=== PATIENT | male | born 1950 | race Caucasian/White ===

== ENCOUNTER 2018-09-05 17:30 | Inpatient (IN) | payer MEDICARE, BC ==
--- NOTE | 2018-09-05 18:54 | ERPHSYRPT ---
- History of Present Illness Time Seen by Provider: 09/05/18 18:50 Source: patient, family Exam Limitations: no limitations Patient Subjective Stated Complaint: pt states he lost balnace and fell in shower last night, pt co pain to right foot, right knee, right ribs, and right shoulder. Triage Nursing Assessment: pt susana, walked in with a cane and brace to back for comfort, he has no swelling or bruising noted, pt is tender to the right side. Physician History: pt is not sure why he fell in shower, no LOC but on plavix , very tender right abd ; some foggyness of recall; mo focal neuro tender right clavical and righth knee and right foot , neurovasc intact. Occurred: yesterday Reason for Fall: lightheaded, lost balance, fell from standing pos Injuries/Pain Location: head, chest, abdomen, pelvis, lower Loss of Consciousness: no loss of consciousness Severity of Pain-Max: moderate Severity of Pain-Current: moderate Modifying Factors: Improves With: movement Associated Symptoms (Fall): abdominal pain, dizziness, extremity injury, lightheadedness Allergies/Adverse Reactions: No Known Drug Allergies Allergy (Unverified 09/05/18 17:52) Hx Tetanus, Diphtheria Vaccination/Date Given: Yes Hx Influenza Vaccination/Date Given: Yes Hx Pneumococcal Vaccination/Date Given: Yes Immunizations Up to Date: Yes - Review of Systems Constitutional: No Fever, No Chills Eyes: No Symptoms Ears, Nose, & Throat: No Symptoms Respiratory: No Cough, No Dyspnea Cardiac: No Edema, No Syncope Abdominal/Gastrointestinal: Abdominal Pain, No Nausea, No Vomiting, No Diarrhea Musculoskeletal: Fall, Joint Pain, No Back Pain, No Neck Pain Skin: No Rash Neurological: No Dizziness, No Focal Weakness, No Sensory Changes Psychological: No Symptoms Endocrine: No Symptoms All Other Systems: Reviewed and Negative - Past Medical History Pertinent Past Medical History: Yes Cardiac History: Coronary Artery Disease, Hypertension Endocrine Medical History: Diabetes Type II - Past Surgical History Past Surgical History: Yes Cardiac: Cardiac Catheterization, Cardiac Stent - Social History Smoking Status: Never smoker Exposure to second hand smoke: No Drug Use: none Patient Lives Alone: No - Nursing Vital Signs Nursing Vital Signs: Initial Vital Signs Temperature 98.1 F 09/05/18 17:42 Pulse Rate 75 09/05/18 17:42 Respiratory Rate 18 09/05/18 17:42 Blood Pressure 135/76 09/05/18 17:42 O2 Sat by Pulse Oximetry 97 09/05/18 17:42 Pain Scale Pain Intensity 6 - [place] Coma Score Best Eye Response (Matias): (4) open spontaneously Best Verbal Response (Matias): (5) oriented Best Motor Response ([place]): (6) obeys commands [place] Total: 15 - Physical Exam General Appearance: mild distress, alert Head Injury: no evidence of injury Eye Exam: PERRL/EOMI ENT Exam: airway nml Neck Exam: trachea midline, normal inspection, No tenderness Respiratory/Chest Exam: normal breath sounds, No chest tenderness, No respiratory distress Cardiovascular Exam: normal heart sounds, regular rate/rhythm Gastrointestinal Exam: soft, tenderness, No distention, No guarding, No ecchymosis Rectal Exam: deferred Back Exam: normal inspection, No vertebral tenderness Extremity Exam: normal inspection, normal range of motion, pelvis stable, contusions, limited range of motion, evidence of injury, pain with movement, tenderness, No deformities Peripheral Pulses: carotid (R): 2+, carotid (L): 2+, femoral (R): 2+, femoral (L ): 2+, dorsalis-pedis (R): 2+ Neurologic Exam: alert, oriented x 3, cooperative, sensation nml, No motor deficits Skin Exam: normal color, warm, dry SpO2: 97 - Course Nursing assessment & vital signs reviewed: Yes EKG Interpreted by Me: Sinus Rhythm, Left Moreland Deviation, LAFB, 1st degree AV Block, Right Bundle Branch Block, Non-specific ST Changes - Radiology Exams Right Foot X-ray Interpretation: Reviewed by me, Non-displaced Fracture (possible nondisp fx - calcium is seen ist met adn great toe I{P) Right Knee X-ray Interpretation: Reviewed by me, Other (no major fx seen - jt calcium present) Right Clavicle X-ray Interpretation: Reviewed by me, Other (grade 1 sep ac jt) Chest X-ray Interpretation: Reviewed by me, No Infiltrates, Other (no obvious fx seen) - CT Exams Abdomen/Pelvis CT Interpretation: Tele-radiologist Report, No Fracture, Other (gallstones without evid for cholecystitis;RI ) Head CT Interpretation: Tele-radiologist Report, Old Stroke, Other Ordered Tests: Active Orders 24 hr Category Date Time Status EKG-ER Only STAT Care 09/05/18 18:54 Active IV Insertion STAT Care 09/05/18 18:54 Active Sling Application STAT Care 09/05/18 22:06 Active Splint STAT Care 09/05/18 22:06 Active ABDOMEN AND PELVIS W/0 CONTRAS [CT] Stat Exams 09/05/18 18:55 Taken CHEST 2 VIEWS (PA AND LAT) Stat Exams 09/05/18 18:55 Completed CLAVICLE Stat Exams 09/05/18 18:58 Completed FOOT (MINIMUM 3 VIEWS) Stat Exams 09/05/18 18:59 Completed HEAD WITHOUT CONTRAST [CT] Stat Exams 09/05/18 18:57 Taken KNEE (3 VIEWS) Stat Exams 09/05/18 18:58 Completed AMYLASE Stat Lab 09/05/18 19:32 Completed CBC W DIFF Stat Lab 09/05/18 19:32 Completed CMP Stat Lab 09/05/18 19:32 Completed CULTURE,URINE Stat Lab 09/05/18 21:33 Received LIPASE Stat Lab 09/05/18 19:32 Completed Lactic Acid Stat Lab 09/05/18 20:00 Completed NT PRO BNP Stat Lab 09/05/18 19:32 Completed TROPONIN Q3H Lab 09/05/18 19:32 Completed TROPONIN Q3H Lab 09/05/18 22:18 Completed TROPONIN Q3H Lab 09/06/18 01:00 Ordered TROPONIN Q3H Lab 09/06/18 04:00 Ordered TROPONIN Q3H Lab 09/06/18 07:00 Ordered UA W/RFX UR CULTURE Stat Lab 09/05/18 21:33 Completed Medication Summary Generic Name Dose Route Start Last Admin Trade Name Freq PRN Reason Stop Dose Admin Sodium Chloride 1,000 mls @ 100 mls/hr 09/05/18 19:00 09/05/18 19:32 Sodium Chloride 0.9% 1000 Ml IV 10/05/18 18:59 100 mls/hr .Q10H KATT Administration Discontinued Medications Generic Name Dose Route Start Last Admin Trade Name Freq PRN Reason Stop Dose Admin Diphtheria/Tetanus/Acell Pertussis 0.5 ml 09/05/18 20:06 09/05/18 20:44 Adacel Vial IM 09/05/18 20:07 Not Given .ONCE ONE Lab/Rad Data: Laboratory Result Diagrams 09/05/18 19:32 09/05/18 19:32 Laboratory Results 09/05/18 09/05/18 09/05/18 Range/Units 22:18 21:33 20:00 WBC (4.0-10.5) K/mm3 RBC (4.1-5.4) M/mm3 Hgb (12.0-16.0) gm/dl Hct (35-47) % MCV (78-100) fl MCH (26-32) pg MCHC (32-36) g/dl RDW (11.5-14.0) % Plt Count (150-450) K/mm3 MPV (6-9.5) fl Gran % (36.0-66.0) % Eos # (Auto) (0-0.5) Absolute Lymphs (auto) (1.0-4.6) Absolute Monos (auto) (0.0-1.3) Lymphocytes % (24.0-44.0) % Monocytes % (0.0-12.0) % Eosinophils % (0.00-5.0) % Basophils % (0.0-0.4) % Absolute Granulocytes (1.4-6.9) Basophils # (0-0.4) Sodium (137-145) mmol/L Potassium (3.5-5.1) mmol/L Chloride (98-107) mmol/L Carbon Dioxide (22-30) mmol/L Anion Gap (5-15) MEQ/L BUN (7-17) mg/dL Creatinine (0.52-1.04) mg/dL Estimated GFR ML/MIN Glucose (74-106) mg/dL Lactic Acid 1.6 (0.4-2.0) Calcium (8.4-10.2) mg/dL Total Bilirubin (0.2-1.3) mg/dL AST (14-36) U/L ALT (0-35) U/L Alkaline Phosphatase (38-126) U/L Troponin I < 0.012 (0.000-0.034) ng/mL NT-Pro-B Natriuret Pep (0-900) pg/mL Serum Total Protein (6.3-8.2) g/dL Albumin (3.5-5.0) g/dL Amylase (30-110) U/L Lipase (23-300) U/L Urine Color YELLOW (YELLOW) Urine Appearance CLEAR (CLEAR) Urine pH 6.0 (5-6) Ur Specific Thompson 1.025 (1.005-1.025) Urine Protein 30 (Negative) Urine Ketones NEGATIVE (NEGATIVE) Urine Blood SMALL (0-5) Parminder/ul Urine Nitrite NEGATIVE (NEGATIVE) Urine Bilirubin NEGATIVE (NEGATIVE) Urine Urobilinogen NEGATIVE (0-1) mg/dL Ur Leukocyte Esterase NEGATIVE (NEGATIVE) Urine WBC (Auto) 0-2 (0-5) /HPF Urine RBC (Auto) NONE (0-2) /HPF U Epithel Cells (Auto) NONE (FEW) /HPF Urine Bacteria (Auto) NONE SEEN (NEGATIVE) /HPF Urine Culture Reflexed YES (NO) Urine Glucose >=500 (NEGATIVE) mg/dL 09/05/18 09/05/18 09/05/18 Range/Units 19:32 19:32 19:32 WBC 8.6 (4.0-10.5) K/mm3 RBC 3.89 L (4.1-5.4) M/mm3 Hgb 12.2 (12.0-16.0) gm/dl Hct 36.3 (35-47) % MCV 93.3 (78-100) fl MCH 31.3 (26-32) pg MCHC 33.6 (32-36) g/dl RDW 12.5 (11.5-14.0) % Plt Count 199 (150-450) K/mm3 MPV 10.5 H (6-9.5) fl Gran % 64.6 (36.0-66.0) % Eos # (Auto) 0.10 (0-0.5) Absolute Lymphs (auto) 1.94 (1.0-4.6) Absolute Monos (auto) 0.99 (0.0-1.3) Lymphocytes % 22.5 L (24.0-44.0) % Monocytes % 11.5 (0.0-12.0) % Eosinophils % 1.2 (0.00-5.0) % Basophils % 0.2 (0.0-0.4) % Absolute Granulocytes 5.56 (1.4-6.9) Basophils # 0.02 (0-0.4) Sodium 136 L (137-145) mmol/L Potassium 4.2 (3.5-5.1) mmol/L Chloride 101 (98-107) mmol/L Carbon Dioxide 25 (22-30) mmol/L Anion Gap 13.6 (5-15) MEQ/L BUN 28 H (7-17) mg/dL Creatinine 1.00 (0.52-1.04) mg/dL Estimated GFR 59.0 ML/MIN Glucose 298 H (74-106) mg/dL Lactic Acid (0.4-2.0) Calcium 9.3 (8.4-10.2) mg/dL Total Bilirubin 1.00 (0.2-1.3) mg/dL AST 32 (14-36) U/L ALT 22 (0-35) U/L Alkaline Phosphatase 76 (38-126) U/L Troponin I < 0.012 (0.000-0.034) ng/mL NT-Pro-B Natriuret Pep 561 (0-900) pg/mL Serum Total Protein 6.4 (6.3-8.2) g/dL Albumin 3.5 (3.5-5.0) g/dL Amylase 37 (30-110) U/L Lipase 110 (23-300) U/L Urine Color (YELLOW) Urine Appearance (CLEAR) Urine pH (5-6) Ur Specific Thompson (1.005-1.025) Urine Protein (Negative) Urine Ketones (NEGATIVE) Urine Blood (0-5) Parminder/ul Urine Nitrite (NEGATIVE) Urine Bilirubin (NEGATIVE) Urine Urobilinogen (0-1) mg/dL Ur Leukocyte Esterase (NEGATIVE) Urine WBC (Auto) (0-5) /HPF Urine RBC (Auto) (0-2) /HPF U Epithel Cells (Auto) (FEW) /HPF Urine Bacteria (Auto) (NEGATIVE) /HPF Urine Culture Reflexed (NO) Urine Glucose (NEGATIVE) mg/dL - Progress Progress: improved, re-examined Progress Note: 09/05/18 20:40 pt taken in handoff from dr sood , but was stable and had not been seen by him yet , so workup was begun after this initial delay; pt stable with no new or changing symptoms noted at that time and in rounding in ER. 09/05/18 22:53 discussed with pt , family and dr nicole and all agree best fpor pt to be in on obs for potential TIA , he is already on plavix so will keep same; will monitor on tele and enzymes followup for incidental hernia and gallstones and right shoudler and foot Discussed with : Solo Will see patient in: hospital (observation) Counseled pt/family regarding: lab results, diagnosis, need for follow-up, rad results - Departure Departure Disposition: Observation Clinical Impression: grade 1 right ac separation, nondisplaced right foot fx/contusion, right rib contusion, incidental cholelithiasis, old CVA per CT, Injury of right rotator cuff Condition: Good Critical Care Time: No Referrals: AMANUEL OCHOA MD [Primary Care Provider] - Instructions: Foot Fracture (DC), Shoulder, Gallstones (DC)
[2018-09-05] MEDS: Sodium Chloride 0.9% 1000 ML 1,000 ML IV SCH (19:32)
[2018-09-05 19:35] LABS: BASOPHIL % 0.2 % (0.0-0.4); Basophil (Absolute #) 0.02 (0-0.4); Eosinophil % 1.2 % (0.00-5.0); Granulocyte Absolute (ANC) 5.56 (1.4-6.9); Granulocytes % 64.6 % (36.0-66.0); Hematocrit 36.3 % (35-47); Hemoglobin 12.2 gm/dl (12.0-16.0); Lymphocyte (Absolute #) 1.94 (1.0-4.6); Lymphocytes % 22.5 % (24.0-44.0); Mean Cell Volume 93.3 fl (78-100); Mean Corpuscular Hgb Concent. 33.6 g/dl (32-36); Mean Platelet Volume 10.5 fl (6-9.5); Monocyte (Absolute #) 0.99 (0.0-1.3); Monocytes % 11.5 % (0.0-12.0); Platelet Count 199 K/mm3 (150-450); Red Blood Count 3.89 M/mm3 (4.1-5.4); Red Cell Distribution Width 12.5 % (11.5-14.0); White Blood Count 8.6 K/mm3 (4.0-10.5)
[2018-09-05 19:45] LABS: Mean Corpuscular Hemoglobin 31.3 pg (26-32)
[2018-09-05 19:57] LABS: ALBUMIN 3.5 g/dL (3.5-5.0); ANION GAP 13.6 MEQ/L (5-15); Calcium 9.3 mg/dL (8.4-10.2); Potassium 4.2 mmol/L (3.5-5.1); Total Protein 6.4 g/dL (6.3-8.2)
[2018-09-05] MEDS ORDERED: Adacel Vial IM ONE (20:06)
--- NOTE | 2018-09-05 21:25 | XRAY ---
Indication: Pain following fall. Comparison: None 3 views of the right shoulder demonstrates mild osteopenia and moderate AC degenerative arthropathy. High riding humeral head commonly seen with rotator cuff tear. No other bony, articular, or soft tissue abnormalities.
--- NOTE | 2018-09-05 21:25 | XRAY ---
Indication: Pain following fall. Comparison: None Portable chest demonstrates normal heart and lungs. Bony thorax intact with mild osteopenia and degenerative changes.
--- NOTE | 2018-09-05 21:27 | XRAY ---
Indication: Pain following fall. Comparison: None 3 views of the right knee demonstrates mild osteopenia, medial/lateral knee joint degenerative chondrocalcinosis, medial joint space narrowing/spurring, tiny patellar spurring, fabella, and scattered vascular calcifications. No other bony, articular, or soft tissue abnormalities.
--- NOTE | 2018-09-05 21:27 | XRAY ---
Indication: Pain following fall. Comparison: None 3 nonweightbearing views of the right foot demonstrates mild osteopenia, small posterior heel spur, and scattered vascular calcifications. Great toe IP joint demonstrates overhanging spurring with soft tissue swelling concerning for gout. No other bony, articular, or soft tissue abnormalities.
[2018-09-05 21:38] LABS: Appearance CLEAR (CLEAR); Bilirubin NEGATIVE (NEGATIVE); Blood SMALL Ery/ul (0-5); Glucose >=500 mg/dL (NEGATIVE); Ketones NEGATIVE (NEGATIVE); Leukocyte Esterase NEGATIVE (NEGATIVE); Nitrite NEGATIVE (NEGATIVE); Protein,Urine Dip 30 (Negative); Specific Gravity 1.025 (1.005-1.025); Urobilinogen NEGATIVE mg/dL (0-1); WBC 0-2 /HPF (0-5)
[2018-09-05 21:40] LABS: Bacteria NONE SEEN /HPF (NEGATIVE)
[2018-09-05] MEDS ORDERED: Zofran 4 MG/2 ML VIAL IV PRN (23:25)
[2018-09-05] MEDS ORDERED: TYLENOL 325 MG PO PRN (23:25)
[2018-09-05] MEDS ORDERED: DILAUDID 2 MG INJECTION IV PRN (23:25)
[2018-09-06] MEDS ORDERED: Norco 10/325 MG Tablet PO PRN (00:22)
[2018-09-06] MEDS ORDERED: ZOCOR 20MG ONE (00:25)
[2018-09-06] MEDS: NEURONTIN 300 MG PO SCH ×3 (00:30→22:00)
[2018-09-06] MEDS: Glucotrol 5 MG PO SCH ×3 (00:30→17:09)
[2018-09-06] MEDS: Coreg 6.25 MG PO SCH ×3 (00:30→22:01)
[2018-09-06] MEDS: ZOCOR 20MG PO SCH ×2 (00:31→22:01)
[2018-09-06] MEDS: Lantus Insulin SQ SCH ×3 (00:31→22:05)
[2018-09-06] MEDS: Sodium Chloride 0.9% 1000 ML 1,000 ML IV SCH ×2 (01:25→21:59)
[2018-09-06] MEDS: NovoLIN R SQ PRN ×2 (04:16→22:06)
[2018-09-06 04:56] LABS: BASOPHIL % 0.4 % (0.0-0.4); Basophil (Absolute #) 0.03 (0-0.4); Eosinophil (Absolute #) 0.16 (0-0.5); Granulocyte Absolute (ANC) 4.55 (1.4-6.9); Granulocytes % 56.5 % (36.0-66.0); Hematocrit 32.9 % (42-50); Lymphocyte (Absolute #) 2.47 (1.0-4.6); Lymphocytes % 30.6 % (24.0-44.0); Mean Cell Volume 93.7 fl (78-100); Mean Corpuscular Hemoglobin 31.3 pg (26-32); Mean Corpuscular Hgb Concent. 33.4 g/dl (32-36); Mean Platelet Volume 10.6 fl (6-9.5); Monocyte (Absolute #) 0.85 (0.0-1.3); Monocytes % 10.5 % (0.0-12.0); Platelet Count 191 K/mm3 (150-450); Red Blood Count 3.51 M/mm3 (4.1-5.6); Red Cell Distribution Width 12.5 % (11.5-14.0); White Blood Count 8.1 K/mm3 (4.0-10.5)
[2018-09-06 05:00] LABS: ALKALINE PHOSPHATASE 63 U/L (38-126); ANION GAP 12.6 MEQ/L (5-15); BLOOD UREA NITROGEN 28 mg/dL (9-20); CHLORIDE 106 mmol/L (98-107); Calcium 8.8 mg/dL (8.4-10.2); Carbon Dioxide 24 mmol/L (22-30); Creatinine 1 1.05 mg/dL (0.66-1.25); Glucose 246 mg/dL (74-106); Potassium 3.8 mmol/L (3.5-5.1); SGOT/AST 22 U/L (17-59); SGPT/ALT 18 U/L (0-50); SODIUM 138 mmol/L (137-145); Total Protein 5.6 g/dL (6.3-8.2)
--- NOTE | 2018-09-06 07:20 | XRAY ---
Indication: Confusion after falling yesterday. Imbalance. Multiple contiguous axial images obtained through the head without contrast. Comparison: None Age-appropriate global atrophy and minimal periventricular degenerative micro-ischemia laterally. Small focus old infarct right cerebellum. No acute intracranial hemorrhage, abnormal extra-axial fluid collection, or mass effect. Fourth ventricle is midline without hydrocephalus. Bony calvarium intact. Visualized paranasal sinuses and mastoid air cells are clear. Impression: Nonacute senile brain. Small old infarct right cerebellum. Comment: Preliminary interpretation was made by [facility]. No critical discrepancy. CTDI 51.37
--- NOTE | 2018-09-06 07:20 | XRAY ---
Indication: Right anterior pain following fall. Multiple contiguous axial images obtained through the abdomen and pelvis without contrast as ordered. Comparison: None Lung bases demonstrates minimal dependent atelectasis. No infiltrate or effusion. Heart is not enlarged. Stomach is distended with food. Noncontrasted stomach and bowel loops appear nonobstructed. Normal appendix. There is mild diffuse scattered colonic fecal debris throughout. Gallbladder is distended with multiple gallstones. Nonobstructing bilateral nephrocalcinosis. Calcified splenic granulomas. No free fluid/air. Remaining liver, pancreas, spleen, adrenal glands, kidneys, ureters, and bladder appear unremarkable for noncontrast exam. Minimal aortoiliac calcifications without AAA. Osseous structures intact with mild degenerative changes throughout the spine. Small fatty right inguinal hernia. Impression: 1. Distended gallbladder with cholelithiasis. Gallbladder sonogram may yield further information. 2. Incidental nonobstructing bilateral nephrocalcinosis, small fatty right inguinal hernia, and fecal stasis. Comment: Preliminary interpretation was made by [facility]. No critical discrepancy. CTDI 23.55
[2018-09-06] MEDS ORDERED: Glucophage 500 MG PO SCH (08:00)
--- NOTE | 2018-09-06 10:36 | PCM.HP ---
History of Present Illness - Chief Complaint Chief Complaint: fall rule out TIA History of Present Illness: is a 68 year old male pt of Dr. Ortiz in [place] with DM II on insulin, CAD (with hx 11 stents, on plavix, sees Dr. Mueller in [place]) and peripheral neuropathy who was admitted after a fall in the shower. Two days ago , he fell inthe shower and is unsure if he had some syncope. He hurt his R rib and R foot (CT neg for rib fx; however R foot with question of avulsion fx so pt put in a boot). He denies hitting his head. The next day he went to [place] and started working, but after 20 min got lightheaded so came to the ER. He notes he has had vivid dreams ever since. Pt denies any slurred speech or unilateral weakness. 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 He states he had a syncopal episode in Apr 2018. Does not think he's had an echo in the past 1 yr. Last had an MRI 4-5 yrs ago he thinks. Does not remember having carotid dopplers. - Review of Systems Constitutional: Weight Loss (down 6-7lb in the past 1 mo; pt states he used to weigh 316lb but engaged in purposeful weight loss.) Abdominal/Gastrointestinal: Vomiting (2 wks ago, sudden. no nausea.), Other ( notes he had colonoscopy in past 1 yr) Musculoskeletal: Fall, Injury Neurological: Other (fall with possible syncope) Psychological: No Anxiety, No Depression, No Suicidal Ideations, No Homicidal Ideations All Other Systems: Reviewed and Negative Medications & Allergies Home Medications: Home Medication List Glipizide 10 mg PO BID 09/05/18 [History Confirmed 09/05/18] Atorvastatin Calcium [Lipitor] 40 mg PO HS 09/06/18 [History Confirmed 09/06/18] Carvedilol 6.25 mg [Coreg 6.25 MG] 6.25 mg PO BID 09/06/18 [History Confirmed 09/06/18] Clopidogrel Bisulfate [Plavix] 75 mg PO DAILY 09/06/18 [History Confirmed ] Fluoxetine HCl 20 mg [Prozac 20 MG] 40 mg PO DAILY 09/06/18 [History Confirmed 09/06/18] Gabapentin 600 mg PO BID 09/06/18 [History Confirmed 09/06/18] Insulin Glargine [Lantus Insulin] 32 unit SQ BID 09/06/18 [History Confirmed 09/06/18] Isosorbide Mononitrate [Isosorbide Mononitrate ER] 60 mg PO DAILY 09/06/18 [ History Confirmed 09/06/18] Metformin HCl 1,000 mg PO BID 09/06/18 [History Confirmed 09/06/18] Allergies/Adverse Reactions: Allergies Allergy/AdvReac Type Severity Reaction Status Date / Time No Known Drug Allergies Allergy Unverified 09/05/18 17:52 - Past Medical History Past Medical History: Yes Neurological History: No Pertinent History ENT History: No Pertinent History Cardiac History: Coronary Artery Disease, Hypertension Respiratory History: No Pertinent History Endocrine Medical History: Diabetes Type II Musculoskelatal History: No Pertinent History GI Medical History: No Pertinent History History: No Pertinent History Pyscho-Social History: No Pertinent History Male Reproductive Disorders: No Pertinent History - Past Surgical History Past Surgical History: Yes Neuro Surgical History: No Pertinent History Cardiac History: Cardiac Catheterization, Cardiac Stent Respiratory Surgery: No Pertinent History GI Surgical History: No Pertinent History Musculskeletal Surgical Hx: Orthopedic Surgery Male Surgical History: No Pertinent History, Prostate Surgery Other Surgical History: 11 heart stents, L rotator cuff surgery - Social History Smoking Status: Never smoker Exposure to second hand smoke: Yes Alcohol: None Drug Use: none - Physical Exam Vital Signs: Vital Signs - 24 hr Temp Pulse Resp BP Pulse Ox 09/06/18 07:53 97.8 F 57 L 14 124/73 91 L 09/06/18 04:00 97.9 F 57 L 19 136/63 96 09/06/18 00:44 97.8 F 67 18 123/59 94 L 09/06/18 00:00 97.8 F 67 18 123/59 94 L 09/05/18 23:17 72 16 130/78 98 09/05/18 22:55 97 09/05/18 17:42 98.1 F 75 18 135/76 97 General Appearance: no apparent distress, alert Neurologic Exam: oriented x 3, cooperative, tax manager public II-XII nml as tested (aside from slight decrease in CN VIII bilat), normal mood/affect, other (motor grossly intact throughout. finger-nose wnl bilat. carpenters 5/5 bilat.), No slurred speech Eye Exam: eyes nml inspection Ears, Nose, Throat Exam: pharynx normal, moist mucous membranes, No pharyngeal erythema, No tonsillar exudate Neck Exam: normal inspection, non-tender, No lymphadenopathy Respiratory Exam: normal breath sounds, lungs clear, No crackles/rales, No rhonchi, No wheezing Cardiovascular Exam: regular rate/rhythm, normal heart sounds, No murmur Gastrointestinal/Abdomen Exam: soft, normal bowel sounds, No tenderness, No distention, No mass, No guarding, No rebound Back Exam: normal inspection, No rash Extremity Exam: other (RLE in boot. no edema bilat LE.) Skin Exam: normal color, warm, dry, No rash Results - Labs Lab/Micro Results: Accuchecks Date 09/06/18 Date 09/06/18 Date 09/06/18 Time 07:30 Time 00:25 Accucheck Value: 185 Accucheck Value: 251 Accucheck Value: 198 Lab Results-Last 24 Hours 09/05/18 09/05/18 09/05/18 Range/Units 19:32 19:32 19:32 WBC 8.6 (4.0-10.5) K/mm3 RBC 3.89 L (4.1-5.4) M/mm3 Hgb 12.2 (12.0-16.0) gm/dl Hct 36.3 (35-47) % MCV 93.3 (78-100) fl MCH 31.3 (26-32) pg MCHC 33.6 (32-36) g/dl RDW 12.5 (11.5-14.0) % Plt Count 199 (150-450) K/mm3 MPV 10.5 H (6-9.5) fl Gran % 64.6 (36.0-66.0) % Eos # (Auto) 0.10 (0-0.5) Absolute Lymphs (auto) 1.94 (1.0-4.6) Absolute Monos (auto) 0.99 (0.0-1.3) Lymphocytes % 22.5 L (24.0-44.0) % Monocytes % 11.5 (0.0-12.0) % Eosinophils % 1.2 (0.00-5.0) % Basophils % 0.2 (0.0-0.4) % Absolute Granulocytes 5.56 (1.4-6.9) Basophils # 0.02 (0-0.4) Sodium 136 L (137-145) mmol/L Potassium 4.2 (3.5-5.1) mmol/L Chloride 101 (98-107) mmol/L Carbon Dioxide 25 (22-30) mmol/L Anion Gap 13.6 (5-15) MEQ/L BUN 28 H (7-17) mg/dL Creatinine 1.00 (0.52-1.04) mg/dL Estimated GFR 59.0 ML/MIN Glucose 298 H (74-106) mg/dL Lactic Acid (0.4-2.0) Calcium 9.3 (8.4-10.2) mg/dL Total Bilirubin 1.00 (0.2-1.3) mg/dL AST 32 (14-36) U/L ALT 22 (0-35) U/L Alkaline Phosphatase 76 (38-126) U/L Troponin I < 0.012 (0.000-0.034) ng/mL NT-Pro-B Natriuret Pep 561 (0-900) pg/mL Serum Total Protein 6.4 (6.3-8.2) g/dL Albumin 3.5 (3.5-5.0) g/dL Amylase 37 (30-110) U/L Lipase 110 (23-300) U/L Urine Color (YELLOW) Urine Appearance (CLEAR) Urine pH (5-6) Ur Specific [place] (1.005-1.025) Urine Protein (Negative) Urine Ketones (NEGATIVE) Urine Blood (0-5) Parminder/ul Urine Nitrite (NEGATIVE) Urine Bilirubin (NEGATIVE) Urine Urobilinogen (0-1) mg/dL Ur Leukocyte Esterase (NEGATIVE) Urine WBC (Auto) (0-5) /HPF Urine RBC (Auto) (0-2) /HPF U Epithel Cells (Auto) (FEW) /HPF Urine Bacteria (Auto) (NEGATIVE) /HPF Urine Culture Reflexed (NO) Urine Glucose (NEGATIVE) mg/dL 09/05/18 09/05/18 09/05/18 Range/Units 20:00 21:33 22:18 WBC (4.0-10.5) K/mm3 RBC (4.1-5.4) M/mm3 Hgb (12.0-16.0) gm/dl Hct (35-47) % MCV (78-100) fl MCH (26-32) pg MCHC (32-36) g/dl RDW (11.5-14.0) % Plt Count (150-450) K/mm3 MPV (6-9.5) fl Gran % (36.0-66.0) % Eos # (Auto) (0-0.5) Absolute Lymphs (auto) (1.0-4.6) Absolute Monos (auto) (0.0-1.3) Lymphocytes % (24.0-44.0) % Monocytes % (0.0-12.0) % Eosinophils % (0.00-5.0) % Basophils % (0.0-0.4) % Absolute Granulocytes (1.4-6.9) Basophils # (0-0.4) Sodium (137-145) mmol/L Potassium (3.5-5.1) mmol/L Chloride (98-107) mmol/L Carbon Dioxide (22-30) mmol/L Anion Gap (5-15) MEQ/L BUN (7-17) mg/dL Creatinine (0.52-1.04) mg/dL Estimated GFR ML/MIN Glucose (74-106) mg/dL Lactic Acid 1.6 (0.4-2.0) Calcium (8.4-10.2) mg/dL Total Bilirubin (0.2-1.3) mg/dL AST (14-36) U/L ALT (0-35) U/L Alkaline Phosphatase (38-126) U/L Troponin I < 0.012 (0.000-0.034) ng/mL NT-Pro-B Natriuret Pep (0-900) pg/mL Serum Total Protein (6.3-8.2) g/dL Albumin (3.5-5.0) g/dL Amylase (30-110) U/L Lipase (23-300) U/L Urine Color YELLOW (YELLOW) Urine Appearance CLEAR (CLEAR) Urine pH 6.0 (5-6) Ur Specific [place] 1.025 (1.005-1.025) Urine Protein 30 (Negative) Urine Ketones NEGATIVE (NEGATIVE) Urine Blood SMALL (0-5) Parminder/ul Urine Nitrite NEGATIVE (NEGATIVE) Urine Bilirubin NEGATIVE (NEGATIVE) Urine Urobilinogen NEGATIVE (0-1) mg/dL Ur Leukocyte Esterase NEGATIVE (NEGATIVE) Urine WBC (Auto) 0-2 (0-5) /HPF Urine RBC (Auto) NONE (0-2) /HPF U Epithel Cells (Auto) NONE (FEW) /HPF Urine Bacteria (Auto) NONE SEEN (NEGATIVE) /HPF Urine Culture Reflexed YES (NO) Urine Glucose >=500 (NEGATIVE) mg/dL 09/06/18 09/06/18 09/06/18 Range/Units 01:25 04:22 04:22 WBC 8.1 (4.0-10.5) K/mm3 RBC 3.51 L (4.1-5.4) M/mm3 Hgb 11.0 L (12.0-16.0) gm/dl Hct 32.9 L (35-47) % MCV 93.7 (78-100) fl MCH 31.3 (26-32) pg MCHC 33.4 (32-36) g/dl RDW 12.5 (11.5-14.0) % Plt Count 191 (150-450) K/mm3 MPV 10.6 H (6-9.5) fl Gran % 56.5 (36.0-66.0) % Eos # (Auto) 0.16 (0-0.5) Absolute Lymphs (auto) 2.47 (1.0-4.6) Absolute Monos (auto) 0.85 (0.0-1.3) Lymphocytes % 30.6 (24.0-44.0) % Monocytes % 10.5 (0.0-12.0) % Eosinophils % 2.0 (0.00-5.0) % Basophils % 0.4 (0.0-0.4) % Absolute Granulocytes 4.55 (1.4-6.9) Basophils # 0.03 (0-0.4) Sodium (137-145) mmol/L Potassium (3.5-5.1) mmol/L Chloride (98-107) mmol/L Carbon Dioxide (22-30) mmol/L Anion Gap (5-15) MEQ/L BUN (7-17) mg/dL Creatinine (0.52-1.04) mg/dL Estimated GFR ML/MIN Glucose (74-106) mg/dL Lactic Acid (0.4-2.0) Calcium (8.4-10.2) mg/dL Total Bilirubin (0.2-1.3) mg/dL AST (14-36) U/L ALT (0-35) U/L Alkaline Phosphatase (38-126) U/L Troponin I < 0.012 < 0.012 (0.000-0.034) ng/mL NT-Pro-B Natriuret Pep (0-900) pg/mL Serum Total Protein (6.3-8.2) g/dL Albumin (3.5-5.0) g/dL Amylase (30-110) U/L Lipase (23-300) U/L Urine Color (YELLOW) Urine Appearance (CLEAR) Urine pH (5-6) Ur Specific [place] (1.005-1.025) Urine Protein (Negative) Urine Ketones (NEGATIVE) Urine Blood (0-5) Parminder/ul Urine Nitrite (NEGATIVE) Urine Bilirubin (NEGATIVE) Urine Urobilinogen (0-1) mg/dL Ur Leukocyte Esterase (NEGATIVE) Urine WBC (Auto) (0-5) /HPF Urine RBC (Auto) (0-2) /HPF U Epithel Cells (Auto) (FEW) /HPF Urine Bacteria (Auto) (NEGATIVE) /HPF Urine Culture Reflexed (NO) Urine Glucose (NEGATIVE) mg/dL 09/06/18 09/06/18 Range/Units 04:22 07:00 WBC (4.0-10.5) K/mm3 RBC (4.1-5.4) M/mm3 Hgb (12.0-16.0) gm/dl Hct (35-47) % MCV (78-100) fl MCH (26-32) pg MCHC (32-36) g/dl RDW (11.5-14.0) % Plt Count (150-450) K/mm3 MPV (6-9.5) fl Gran % (36.0-66.0) % Eos # (Auto) (0-0.5) Absolute Lymphs (auto) (1.0-4.6) Absolute Monos (auto) (0.0-1.3) Lymphocytes % (24.0-44.0) % Monocytes % (0.0-12.0) % Eosinophils % (0.00-5.0) % Basophils % (0.0-0.4) % Absolute Granulocytes (1.4-6.9) Basophils # (0-0.4) Sodium 138 (137-145) mmol/L Potassium 3.8 (3.5-5.1) mmol/L Chloride 106 (98-107) mmol/L Carbon Dioxide 24 (22-30) mmol/L Anion Gap 12.6 (5-15) MEQ/L BUN 28 H (7-17) mg/dL Creatinine 1.05 (0.52-1.04) mg/dL Estimated GFR > 60.0 ML/MIN Glucose 246 H (74-106) mg/dL Lactic Acid (0.4-2.0) Calcium 8.8 (8.4-10.2) mg/dL Total Bilirubin 0.60 (0.2-1.3) mg/dL AST 22 (14-36) U/L ALT 18 (0-35) U/L Alkaline Phosphatase 63 (38-126) U/L Troponin I < 0.012 (0.000-0.034) ng/mL NT-Pro-B Natriuret Pep (0-900) pg/mL Serum Total Protein 5.6 L (6.3-8.2) g/dL Albumin 3.0 L (3.5-5.0) g/dL Amylase (30-110) U/L Lipase (23-300) U/L Urine Color (YELLOW) Urine Appearance (CLEAR) Urine pH (5-6) Ur Specific [place] (1.005-1.025) Urine Protein (Negative) Urine Ketones (NEGATIVE) Urine Blood (0-5) Parminder/ul Urine Nitrite (NEGATIVE) Urine Bilirubin (NEGATIVE) Urine Urobilinogen (0-1) mg/dL Ur Leukocyte Esterase (NEGATIVE) Urine WBC (Auto) (0-5) /HPF Urine RBC (Auto) (0-2) /HPF U Epithel Cells (Auto) (FEW) /HPF Urine Bacteria (Auto) (NEGATIVE) /HPF Urine Culture Reflexed (NO) Urine Glucose (NEGATIVE) mg/dL Accuchecks Date 09/06/18 Date 09/06/18 Date 09/06/18 Time 07:30 Time 00:25 Accucheck Value: 185 Accucheck Value: 251 Accucheck Value: 198 - Radiology Impressions Radiology Exams & Impressions: Radiology Procedures Category Date Time Status ABDOMEN AND PELVIS W/0 CONTRAS [CT] Stat Exams 09/05/18 18:55 Completed CHEST 2 VIEWS (PA AND LAT) Stat Exams 09/05/18 18:55 Completed CLAVICLE Stat Exams 09/05/18 18:58 Completed FOOT (MINIMUM 3 VIEWS) Stat Exams 09/05/18 18:59 Completed HEAD WITHOUT CONTRAST [CT] Stat Exams 09/05/18 18:57 Completed KNEE (3 VIEWS) Stat Exams 09/05/18 18:58 Completed Assessment/Plan (1) Syncope Current Visit: Yes Status: Acute Qualifiers: Encounter type: initial encounter Assessment & Plan: Had syncope in Apr and unsure if he had syncope 2d ago. Keeping pt here on telemetry in order to finish workup on syncope tomorrow with MRI brain (if OK with Dr. Mueller - unsure when last stent was placed), carotid doppler, and echo. orthostats today. Code(s): R55 - SYNCOPE AND COLLAPSE (2) CAD (coronary artery disease) Current Visit: Yes Status: Chronic Qualifiers: Coronary Disease-Associated Artery/Lesion type: [place] artery [place] vs. transplanted heart: [place] heart Associated angina: without angina Qualified Code(s): I25.10 - Atherosclerotic heart disease of [place] coronary artery without angina pectoris Code(s): I25.10 - ATHSCL HEART DISEASE OF [place] CORONARY ARTERY W/O ANG PCTRS (3) Foot injury Current Visit: Yes Status: Acute Qualifiers: Encounter type: initial encounter Laterality: right Qualified Code(s): S99.921A - Unspecified injury of right foot, initial encounter Assessment & Plan: with possible avulsion fx per ER Dr. Alas) although Dr. Martinez's overread with no mention of fx; some concern for gout. Will check uric acid. Code(s): S99.929A - UNSPECIFIED INJURY OF UNSPECIFIED FOOT, INITIAL ENCOUNTER (4) Rib pain on right side Current Visit: Yes Status: Acute Assessment & Plan: cxr neg for fx; ct neg for fx Code(s): R07.81 - PLEURODYNIA (5) Cholelithiasis Current Visit: Yes Status: Acute Qualifiers: Cholelithiasis location: gallbladder Cholecystitis presence: without cholecystitis Biliary obstruction: without biliary obstruction Qualified Code(s): K80.20 - Calculus of gallbladder without cholecystitis without obstruction Assessment & Plan: Found incidentally on CT; pt will need to f/u with his primary care provider about this (will send a copy of this note to Dr. Ortiz). (6) Osteopenia Current Visit: Yes Status: Acute Qualifiers: Osteopenia location: multiple sites Qualified Code(s): M85.89 - Other specified disorders of bone density and structure, multiple sites Assessment & Plan: Will need to f/u with his PCP about this. Code(s): M85.80 - OTH DISRD OF BONE DENSITY AND STRUCTURE, UNSPECIFIED SITE (7) Injury of right rotator cuff Current Visit: Yes Status: Acute Qualifiers: Encounter type: initial encounter Qualified Code(s): S46.001A - Unspecified injury of muscle(s) and tendon(s) of the rotator cuff of right shoulder, initial encounter Assessment & Plan: He is not complaining of R shoulder pain today, but on Xray there was a high riding humerus which is typically consistent with rotator cuff injury - pt needs to f/u with PCP pls. Code(s): S46.001A - UNSP INJ MUSC/TEND THE ROTATOR CUFF OF R SHOULDER, INIT
[2018-09-06] MEDS: ENOXAPARIN SODIUM SQ SCH (10:57)
[2018-09-06] MEDS: Imdur 60MG PO SCH (10:57)
[2018-09-06] MEDS: Prozac 20 MG PO SCH (10:57)
[2018-09-06] MEDS: PLAVIX 75 MG Tablet PO SCH (10:58)
[2018-09-07] MEDS: Sodium Chloride 0.9% 1000 ML 1,000 ML IV SCH (08:21)
[2018-09-07] MEDS: Glucotrol 5 MG PO SCH ×2 (08:26→09:54)
--- NOTE | 2018-09-07 09:00 | PCM.NOTE ---
Date and Time: 09/07/18854 Subjective Assessment: Patient reports he has been out of bed to go to the bathroom. He thinks he may want home health care when he is discharged. He is not sure if he passed out when he fell. He reports ER doctor told him right foot was fractured. He reports not eating as much while here and thinks this is why his blood glucose is low. His is at the bedside today. They report he follows closely with residential support specialist Dr. Mueller. clinical lab clerk states Dr. Mueller is out this week. Old office notes obtained. Objective Exam General Appearance: no apparent distress, alert Neurologic Exam: alert, cooperative, normal mood/affect Skin Exam: normal color, warm, dry Respiratory Exam: normal breath sounds, lungs clear, No crackles/rales, No rhonchi, No wheezing Cardiovascular Exam: regular rate/rhythm, normal heart sounds, No murmur, No friction rub, No gallop Gastrointestinal/Abdomen Exam: soft, normal bowel sounds, other (mild tenderness on right side), No distention, No mass, No guarding Extremity Exam: normal inspection, other (boot on right foot, no c/c) OBJECTIVE DATA Vital Signs: Vital Signs - 24 hr Temp Pulse Resp BP Pulse Ox 09/07/18 07:40 97.6 F 53 L 18 189/86 90 L 09/07/18 04:00 97.9 F 57 L 17 175/84 92 L 09/07/18 00:00 98.5 F 59 L 19 178/78 95 09/06/18 20:00 97.6 F 62 20 148/76 98 09/06/18 16:00 97.8 F 57 L 18 138/65 94 L 09/06/18 12:27 63 H 117/61 09/06/18 12:26 54 H 134/61 09/06/18 12:00 97.8 F 56 L 14 150/72 91 L Pain Assessment - Last Documented Pain Intensity 4 Pain Scale Used 0-10 Pain Scale Intake and Output: Intake & Output 09/05/18 09/06/18 09/07/18 09/08/18 06:59 06:59 06:59 06:59 Intake Total 696 4118 Output Total 3900 Balance 696 218 Weight 102.2 kg 104.5 kg Lab Results: Accuchecks Date 09/07/18 Date 09/07/18 Date 09/07/18 Date 09/06/18 Date 09/06/18 Date 09/06/18 Time 04:30 Time 03:15 Time 00:00 Time 20:00 Time 16:00 Time 11:30 Accucheck Value: 146 Accucheck Value: 93 Accucheck Value: 47 Accucheck Value: 174 Accucheck Value: 218 Accucheck Value: 136 Accucheck Value: 87 Lab Results-Last 24 Hours 09/06/18 09/07/18 Range/Units 05:00 03:33 Glucose 47 L* (74-106) mg/dL Uric Acid 5.0 (3.5-7.2) mg/dL Radiology Exams: Radiology Procedures Category Date Time Status ABDOMEN AND PELVIS W/0 CONTRAS [CT] Stat Exams 09/05/18 18:55 Completed CAROTID BILATERAL [US] Routine Exams 09/07/18 Ordered CHEST 2 VIEWS (PA AND LAT) Stat Exams 09/05/18 18:55 Completed CLAVICLE Stat Exams 09/05/18 18:58 Completed ECHO W/2D AND DOPPLER [US] Routine Exams 09/07/18 Ordered FOOT (MINIMUM 3 VIEWS) Stat Exams 09/05/18 18:59 Completed HEAD WITHOUT CONTRAST [CT] Stat Exams 09/05/18 18:57 Completed KNEE (3 VIEWS) Stat Exams 09/05/18 18:58 Completed MRI BRAIN W & W/O CONTRAST [MRI] Routine Exams 09/07/18 10:30 Ordered Assessment/Plan (1) Fall Current Visit: Yes Status: Acute Assessment & Plan: Will ask PT to evaluate for safety at home. Code(s): W19.XXXA - UNSPECIFIED FALL, INITIAL ENCOUNTER (2) Syncope Current Visit: Yes Status: Acute Qualifiers: Encounter type: initial encounter Assessment & Plan: Echo ordered for today, carotid doppler ordered. MRI ordered of brain. Continue telemetry. No events on telemetry. He already has follow up with residential support specialist scheduled for later this month. Code(s): R55 - SYNCOPE AND COLLAPSE (3) CAD (coronary artery disease) Current Visit: Yes Status: Chronic Qualifiers: Coronary Disease-Associated Artery/Lesion type: [place] artery [place] vs. transplanted heart: [place] heart Associated angina: without angina Qualified Code(s): I25.10 - Atherosclerotic heart disease of [place] coronary artery without angina pectoris Assessment & Plan: Continue home medication. Code(s): I25.10 - ATHSCL HEART DISEASE OF [place] CORONARY ARTERY W/O ANG PCTRS (4) Diabetes type 2, uncontrolled Current Visit: Yes Status: Acute Assessment & Plan: Stop glipizide in PM due to hypoglycemia this AM and change accu checks to before meals so he won't get short acting insulin at bed time. Check Hgb A1C. Code(s): E11.65 - TYPE 2 DIABETES MELLITUS WITH HYPERGLYCEMIA (5) Essential hypertension Current Visit: Yes Status: Acute Assessment & Plan: Continue current medication. Code(s): I10 - ESSENTIAL (PRIMARY) HYPERTENSION
[2018-09-07] MEDS: Prozac 20 MG PO SCH (09:52)
[2018-09-07] MEDS: NEURONTIN 300 MG PO SCH ×2 (09:52→22:34)
[2018-09-07] MEDS: PLAVIX 75 MG Tablet PO SCH (09:52)
[2018-09-07] MEDS: Imdur 60MG PO SCH (09:52)
[2018-09-07] MEDS: Coreg 6.25 MG PO SCH ×2 (09:52→22:33)
[2018-09-07] MEDS: Lantus Insulin SQ SCH ×2 (09:53→22:34)
[2018-09-07] MEDS: ENOXAPARIN SODIUM SQ SCH (09:53)
--- NOTE | 2018-09-07 10:25 | XRAY ---
Indication: Syncope. Two-dimensional sonogram and color Doppler imaging of the carotid arteries of the neck performed. Comparison: None Examination of the request circulation demonstrates slightly tortuous common carotid artery with minimal eccentric heterogeneous plaquing at the level of the bulb. PSV of the CCA is 106 cm/s. PSV of the ICA is 63 cm/s. ICA/CCA ratio is 0.6. Normal antegrade vertebral artery flow. Examination of the left carotid circulation demonstrates minimal calcified plaquing at the level of the bulb. PSV of the CCA is 96 cm/s. PSV of the ICA is 67 cm/s. ICA/CCA ratio is 0.7. Normal antegrade vertebral artery flow. Impression: Minimal plaquing bilaterally as detailed. Velocity measurements and ratios are negative for hemodynamically significant flow-limiting stenosis.
[2018-09-07] MEDS: NovoLIN R SQ PRN ×2 (12:16→16:54)
--- NOTE | 2018-09-07 12:25 | XRAY ---
Indication: Syncopal episode. History old stroke. Sagittal, coronal, and axial MRI brain was performed using pre-and post T1, T2, FLAIR, diffusion, and ADC sequences. 15 cc Magnevist contrast used. Comparison: None There is global atrophy within normal limits for patient's age. Right mid cerebellum demonstrates 2 cm focus old infarct with minimal surrounding gliosis. Tiny remote lacunar infarcts in the right posterior periventricular region. Multiple scattered T2 signal intensities seen in the periventricular white matter bilaterally and much lesser degree brainstem brook probable degenerative micro-ischemia. However several are ovoid and oriented perpendicular to the corpus callosum as seen in multiple sclerosis. No acute intracranial hemorrhage, abnormal extra-axial fluid collection, or mass effect. Diffusion images are negative for restricted signal. Following gadolinium, there is no abnormal enhancing intra or extra-axial mass. Fourth ventricle is midline without hydrocephalus. 7/8 cranial nerve complex bilaterally symmetric. Normal flow void signal within the major intracervical circulation. Normal appearing craniocervical junction and sella turcica. Paranasal sinuses are clear. Impression: 1. Normal expected aging brain including atrophy and degenerative micro-ischemia as detailed. 2. Small focus old right cerebellum infarct and old lacunar infarcts in the right posterior periventricular region. 3. Multiple periventricular T2 signal intensities bilaterally and orientated perpendicular to the corpus callosum. Rule out superimposed multiple sclerosis. 4. Negative contrast exam. 5. Remaining MRI brain with contrast exam is negative.
[2018-09-07] MEDS ORDERED: NovoLOG Insulin SQ PRN (18:06)
[2018-09-07] MEDS: ZOCOR 20MG PO SCH (22:34)
[2018-09-08] MEDS: Sodium Chloride 0.9% 10 ML FLUSH Syringe IV SCH ×2 (06:04→16:20)
--- NOTE | 2018-09-08 09:01 | PCM.NOTE ---
Date and Time: 09/08/18 0856 Subjective Assessment: Patient reports at this time, he does not feel like he can take care of himself at home. He reports that his balance feels off when he is up and had trouble ambulating to the bathroom. He reports his right ribs and right forefoot still hurt. He states his right hip is feeling better. He reports his blood glucose was low again this AM. He also reports slurring his words when he was talking to his son yesterday on the phone. He reports when he came in, he was seeing spiders on the ceiling and that he has been having abnormal strange dreams. - Review of Systems Constitutional: Weakness Eyes: No Symptoms Ears, Nose, & Throat: No Symptoms Respiratory: No Symptoms Cardiac: No Symptoms Abdominal/Gastrointestinal: No Symptoms, No Constipation Genitourinary Symptoms: No Symptoms Musculoskeletal: Other (rib pain, right foot pain) Neurological: Gait Changes Psychological: Hallucinations Objective Exam General Appearance: no apparent distress, alert Neurologic Exam: alert, oriented x 3, cooperative, normal mood/affect, other ( Knows the president of the is Loy Luther.) Skin Exam: normal color, warm, dry Respiratory Exam: normal breath sounds, lungs clear, No crackles/rales, No rhonchi, No wheezing Cardiovascular Exam: regular rate/rhythm, normal heart sounds, No murmur, No friction rub, No gallop Gastrointestinal/Abdomen Exam: soft, normal bowel sounds, tenderness, No distention, No mass, No guarding Extremity Exam: normal inspection, other (no c/c/e) OBJECTIVE DATA Vital Signs: Vital Signs - 24 hr Temp Pulse Resp BP Pulse Ox 09/08/18 08:00 97.4 F 55 L 16 167/79 95 09/08/18 04:00 98.7 F 67 14 155/67 93 L 09/08/18 00:00 98.8 F 65 20 170/74 97 09/07/18 20:00 97.8 F 59 L 27 H 168/86 95 09/07/18 16:00 97.8 F 81 18 121/79 92 L 09/07/18 12:00 97.8 F 59 L 18 182/83 95 Pain Assessment - Last Documented Pain Intensity 9 Pain Scale Used [facility] Intake and Output: Intake & Output 06/30/09/07/18 09/08/18 09/09/18 06:59 06:59 06:59 06:59 Intake Total 696 1926 1010 860 Output Total 4600 4380 Balance 696 218 -991 860 Weight 102.2 kg 104.5 kg 103.2 kg Lab Results: Accuchecks Date 09/08/18 Date 09/08/18 Time 08:30 Time 07:29 Accucheck Value: 135 Accucheck Value: 55 Accucheck Value: 184 Accucheck Value: 221 Lab Results-Last 24 Hours 09/07/18 Range/Units 06:00 Hemoglobin A1c 11.21 H (4.5-6.0) % Radiology Exams: Radiology Procedures Category Date Time Status CAROTID BILATERAL [US] Routine Exams 09/07/18 09:58 Completed ECHO W/2D AND DOPPLER [US] Routine Exams 09/07/18 09:59 Taken MRI BRAIN W & W/O CONTRAST [MRI] Routine Exams 09/07/18 10:30 Completed Multi-Disciplinary Progress Notes: Multi-Disciplinary Progress Notes 09/07/18 14:05 (created 09/07/18 16:27) Case Management Note by Diane Madrid DISCUSSION WITH PT AND , ZIGGY, ALSO IS LAY CAREGIVER WITH [facility] AT BED[facility]. DISCUSSED PT'S NEEDS ON DISCHARGE. PROVIDED WITH LIST OF HHC PROVIDERS AND ENCOURAGED C SERVICES ON DISCHARGE. ALSO, DISCUSSED NEED FOR WALKER, PREFERS TO USE [facility] FOR THIS SO THEY MAY HAVE IT DELIVERED TO THE ROOM PRIOR TO DISCHARGE. PT AND ALSO, INQUIRING ABOUT RESULTS OF THE MRI PT HAD TODAY, EDUCATED BOTH THAT DR. GARCIA WOULD HAVE THOSE REPORTS AVAILABLE TOMORROW WHEN SHE DID HER ROUNDING. PT/ BOTH VERBALIZED UNDERSTANDING. DENY ADDNL NEEDS AT PRESENT TIME. WILL FOLLOW. Initialized on 09/07/18 16:27 - END OF NOTE Assessment/Plan (1) Fall Current Visit: Yes Status: Acute Assessment & Plan: Will stop [place] and change to tylenol and/or naproxen. Continue PT. Code(s): W19.XXXA - UNSPECIFIED FALL, INITIAL ENCOUNTER (2) Syncope Current Visit: Yes Status: Acute Qualifiers: Encounter type: initial encounter Assessment & Plan: MRI without any cause for syncope and carotid dopplers negative; Echo done but not read yet. Continue telemetry. Code(s): R55 - SYNCOPE AND COLLAPSE (3) CAD (coronary artery disease) Current Visit: Yes Status: Chronic Qualifiers: Coronary Disease-Associated Artery/Lesion type: [place] artery [place] vs. transplanted heart: [place] heart Associated angina: without angina Qualified Code(s): I25.10 - Atherosclerotic heart disease of [place] coronary artery without angina pectoris Assessment & Plan: Continue home medication. He is on plavix. Code(s): I25.10 - ATHSCL HEART DISEASE OF [place] CORONARY ARTERY W/O ANG PCTRS (4) Diabetes type 2, uncontrolled Current Visit: Yes Status: Acute Assessment & Plan: Hgb A1C is very elevated but having low blood glucoses in the AM here. I have stopped his PM glipizide and today I adjusted his lantus to once a day. Continue to monitor. Will need to follow up with his outpatient provider after discharge. Code(s): E11.65 - TYPE 2 DIABETES MELLITUS WITH HYPERGLYCEMIA (5) Essential hypertension Current Visit: Yes Status: Acute Assessment & Plan: His blood pressure has been running high. Will start low dose of lisinopril and continue other antihypertensive medications. Code(s): I10 - ESSENTIAL (PRIMARY) HYPERTENSION (6) History of CVA (cerebrovascular accident) Current Visit: Yes Status: Acute Assessment & Plan: CT and MRI show history of CVA. Continue to manage risk factors. Continue plavix. Tele Neurology consulted. Code(s): Z86.73 - PRSNL HX OF TIA (TIA), AND CEREB INFRC W/O RESID DEFICITS (7) Gait instability Current Visit: Yes Status: Acute Assessment & Plan: Script for walker signed. PT evaluated him yesterday and I reviewed their note. 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 Code(s): S99.929A - UNSPECIFIED INJURY OF UNSPECIFIED FOOT, INITIAL ENCOUNTER
[2018-09-08] MEDS ORDERED: Lantus Insulin SQ SCH (10:00)
[2018-09-08] MEDS ORDERED: Zestril 10 MG PO SCH (10:00)
[2018-09-08] MEDS: Prozac 20 MG PO SCH (10:32)
[2018-09-08] MEDS: Imdur 60MG PO SCH (10:32)
[2018-09-08] MEDS: NEURONTIN 300 MG PO SCH (10:32)
[2018-09-08] MEDS: TYLENOL EXTRA STRENGTH 500 MG PO SCH ×2 (10:32→16:20)
[2018-09-08] MEDS: PLAVIX 75 MG Tablet PO SCH (10:33)
[2018-09-08] MEDS: Coreg 6.25 MG PO SCH (10:33)
[2018-09-08] MEDS: Glucotrol 5 MG PO SCH (10:33)
[2018-09-08] MEDS: ENOXAPARIN SODIUM SQ SCH (10:33)
[2018-09-08 12:04] VITALS: PULSE 57
--- NOTE | 2018-09-08 17:20 | PCM.DCORD ---
- Discharge Discharge Date: 09/08/18 Disposition: Home, Self-Care Condition: Good Prescriptions: New Acetaminophen 500 mg [Tylenol Extra Strength 500 mg] 1,000 mg PO Q6HT tablet Lisinopril 5 mg [Zestril 5 MG] 5 mg PO DAILY #30 tablet Continue Carvedilol 6.25 mg [Coreg 6.25 MG] 6.25 mg PO BID Isosorbide Mononitrate [Isosorbide Mononitrate ER] 60 mg PO DAILY Gabapentin 600 mg PO BID Atorvastatin Calcium [Lipitor] 40 mg PO HS Fluoxetine HCl 20 mg [Prozac 20 MG] 40 mg PO DAILY Clopidogrel Bisulfate [Plavix] 75 mg PO DAILY Metformin HCl 1,000 mg PO BID #0 Changed Glipizide 10 mg PO DAILY #0 Insulin Glargine [Lantus Insulin] 40 unit SQ DAILY #0 Additional Instructions: Please follow up with Primary care physician re: gallstones, osteopenia, and possible rotator cuff tear. Discuss follow up with an outpatient Neurologist with Dr. Ochoa and discuss home health care with Dr. Ochoa. Follow up with: AMANUEL OCHOA MD [Primary Care Provider] - 09/17/18 8:45 am ANA LAGOS [NON-STAFF PHY W/O PRIVILEGES] - 09/29/18 10:45 am (stress test scheduled with )
[2018-09-08 17:21] VITALS: BP 115/56; O2SAT 94
== END 2018-09-08 17:55 | disposition home or self-care (01) | DRG 312 ==
LOC: EDSEX 17:30 → ED 17:30 → MED SURG 23:20 → OBSVTOIN 09-07 08:55
PROVIDERS: ADMIT Family Medicine; ATTEND Family Medicine
DX: R55 Syncope and collapse (principal); S99.921A Unspecified injury of right foot, initial encounter; S46.001A Unspecified injury of muscle(s) and tendon(s) of the rotator cuff of right shoulder, initial encounter; S20.211A Contusion of right front wall of thorax, initial encounter; M25.551 Pain in right hip; E11.65 Type 2 diabetes mellitus with hyperglycemia; M85.89 Other specified disorders of bone density and structure, multiple sites; I25.10 Atherosclerotic heart disease of native coronary artery without angina pectoris; R26.81 Unsteadiness on feet; R07.81 Pleurodynia; I10 Essential (primary) hypertension; M25.561 Pain in right knee; K80.20 Calculus of gallbladder without cholecystitis without obstruction; W18.39XA Other fall on same level, initial encounter; Y93.E1 Activity, personal bathing and showering; Y92.002 Bathroom of unspecified non-institutional (private) residence as the place of occurrence of the external cause; Z86.73 Personal history of transient ischemic attack (TIA), and cerebral infarction without residual deficits; Z79.01 Long term (current) use of anticoagulants; Z79.899 Other long term (current) drug therapy
CPT/HCPCS: 36000; 36415; 70450; 70553; 71046; 73000; 73562; 73630; 74176; 80053; 81001; 82150; 82947; 82962; 83036; 83605; 83690; 83880; 84484; 84550; 85025; 87086; 93005; 93268; 93306; 93880; 96360; 96361; 97161; 97530; 99285; G0378; Q3014; J1650; L4386; A9270-GY